=== PATIENT | male | born 1945 | race Caucasian/White ===

== ENCOUNTER → 2022-01-16 | Outpatient (CLI) | payer OTHER ==
--- NOTE | 2022-01-16 16:44 | DIREP ---
PROCEDURE:XRAY WRIST MIN 3VW-RT COMPARISON:None. INDICATIONS:Z00.00 HISTORY AND PHYSICAL EVALUATION FINDINGS: BONES:Remote ulnar styloid fracture without bony union. No acute fracture noted. JOINTS:Minimal degenerative changes. SOFT TISSUES:Normal. OTHER:No additional findings. CONCLUSION:Minimal degenerative changes without acute bony abnormality. Dictated by: Lyndsay Rdz M.D. on 01/16/2022 at 04:42 PM
== END | disposition home or self-care (01) ==
LOC: RAD 14:07
DX: Z00.00 Encounter for general adult medical examination without abnormal findings (principal)
CPT/HCPCS: 73110-RT